=== PATIENT | female | born 1985 | race Caucasian/White ===

== ENCOUNTER 2018-04-21 05:35 | Day surgery (SDC) | payer OTHER ==
[2018-04-21] MEDS ORDERED: LIDOCAINE 2% (SDV) 5 ML INJ (06:41)
[2018-04-21] MEDS ORDERED: PROPOFOL 20 ML (06:41)
[2018-04-21] MEDS ORDERED: CEFAZOLIN 1 GM INJ (06:41)
[2018-04-21] MEDS ORDERED: FENTAnyl 50 MCG/ML VIAL ×2 (06:41→07:31)
[2018-04-21] MEDS ORDERED: MIDAZOLAM 1 MG/ML 2 ML INJ (06:41)
[2018-04-21] MEDS ORDERED: DEXAMETHASONE 4 MG/ML 5 ML INJ (06:45)
[2018-04-21] MEDS ORDERED: METOCLOPRAMIDE 10 MG INJ (06:45)
[2018-04-21] MEDS ORDERED: ONDANSETRON 4 MG INJ (06:45)
[2018-04-21] MEDS ORDERED: FAMOTIDINE 20 MG INJ (06:45)
[2018-04-21] MEDS ORDERED: SUCCINYLCHOLINE CHLORIDE 100 MG/5 ML SYG IV (07:00)
[2018-04-21] MEDS ORDERED: HYDROmorphONE 1 MG/5 ML IV SYRINGE IV ×2 (07:00)
[2018-04-21] MEDS ORDERED: OXYCODONE/ACETAMINOPHEN (5/325) TAB PO ×4 (07:00→09:30)
[2018-04-21] MEDS ORDERED: PROCHLORPERAZINE 10 MG INJ IV (07:00)
[2018-04-21] MEDS ORDERED: MEPERIDINE 25 MG INJ IV (07:00)
[2018-04-21] MEDS ORDERED: KETOROLAC 30 MG INJ (07:24)
[2018-04-21] MEDS ORDERED: LABETALOL HCL 20MG INJ (07:54)
[2018-04-21] MEDS ORDERED: SOD CHLORIDE 0.9% 1,000 ML IV (09:25)
[2018-04-21] MEDS: ROPIVACAINE 0.5 % 30 ML VIAL (09:25)
[2018-04-21] MEDS ORDERED: ONDANSETRON 4 MG INJ IV (09:30)
[2018-04-21] MEDS ORDERED: morphine 2 MG INJ IV (09:30)
[2018-04-21] MEDS: ONDANSETRON 4 MG INJ IV (09:43)
[2018-04-21] MEDS: HYDROmorphONE 1 MG/5 ML IV SYRINGE IV (09:43)
== END 2018-04-21 11:29 | disposition home or self-care (01) ==
LOC: SDS 05:35
DX: S83.272D Complex tear of lateral meniscus, current injury, left knee, subsequent encounter (principal); M22.42 Chondromalacia patellae, left knee; X58.XXXD Exposure to other specified factors, subsequent encounter
CPT/HCPCS: 29881